=== PATIENT | male | born 1945 | race Caucasian/White ===

== ENCOUNTER 2016-10-21 08:21 | Day surgery (SDC) | payer MEDICARE, OTHER ==
--- NOTE | 2016-10-14 12:08 | HISTORY AND PHYSICAL E ---
History and Physical NAME: DELILAH RODRIGUEZ : 1945 AGE: 71Y ADMITTED: 10/21/2016 ROOM: CHIEF COMPLAINT: Colon screening, history of polyps, history of diverticulosis. HISTORY AND PHYSICAL: The patient is known to me for many years. I saw him when he was 55. The patient at that time underwent colonoscopy showing adenoma polyps. The patient had another colonoscopy in 2000 showing hyperplastic polyp. The patient presented today for follow-up colonoscopy. On his last colon done in 2009 he did have sigmoid polyps and diverticulosis. The patient presented at this time regarding follow-up colonoscopy. One of the polyps came adenoma polyp. He does have diverticulosis. Again, colonoscopy did show adenoma polyp in descending colon and diverticulosis. Because of the multiple issues and diverticulosis, the patient is being done in the OR with anesthesia standby for followup regarding adenoma polyp at the sigmoid junction between sigmoid and descending colon. Biopsy from the adenoma polyp in the left colon was adenoma polyp and sigmoid colon diverticulosis. SOCIAL HISTORY: The patient does not smoke. He drinks an occasional beer. ALLERGIES: No known allergies. REVIEW OF SYSTEMS: HEENT: Negative. CARDIAC: Hypertension. ENDOCRINE: Negative. GASTROINTESTINAL: Diverticulosis. ONCOLOGY/HEMATOLOGY: History of prostate cancer. FAMILY HISTORY: Father of an accident. Mom is alive. PHYSICAL EXAMINATION: VITAL SIGNS: Blood pressure is 120/70, pulse 80, respirations 18, temp 98. HEENT: Normal. NECK: Supple. CARDIOVASCULAR: Normal. LUNGS: Clear. ABDOMEN: Soft. NEUROLOGIC: Negative. CONCLUSIONS: 1. Colon screening. Colon exam to be done in the OR with anesthesia standby. 2. History of polyps, adenoma, sigmoid colon. 3. Sigmoid diverticulosis. MEDICATIONS: The patient takes Lipitor, , vitamins. PAST SURGICAL HISTORY: His first colonoscopy in 2000 showed polyps, 2004 polyps, 2009 polyps, 2016 polyps. PLAN: Colonoscopy, admit 10/21/2016. DICTATING PHYSICIAN: NAYA VASQUEZ M.D. [id number] [id number] ALEXY#: [id number] ID: [id number] JOB#: [id number] ACCT: [id number] cc:NAYA VASQUEZ M.D., ROBERT M.D. >
[2016-10-19 12:14] LABS: HEMATOCRIT 40.2 % (37.9-51.0); HEMOGLOBIN 14.1 g/dL (13.5-17.0); HGB HCT DIFFERENCE 2.1; MEAN CORPUSCULAR HEMOGLOBIN 34.5 pg (27.0-33.4); MEAN CORPUSCULAR HGB CONC 35.1 g/dL (32.0-36.0); MEAN CORPUSCULAR VOLUME 98 fl (80-97); RED BLOOD COUNT 4.09 10^6/uL (4.35-5.55); RED CELL DISTRIBUTION WIDTH 12.4 % (11.5-14.0); WHITE BLOOD COUNT 3.5 10^3/uL (4.0-10.5)
[2016-10-19 12:23] LABS: ANION GAP 12 (5-19); BLOOD UREA NITROGEN 10 mg/dL (7-20); CALCIUM 9.6 mg/dL (8.4-10.2); CARBON DIOXIDE 28 mmol/L (22-30); CHLORIDE 102 mmol/L (98-107); CREATININE RESULT 0.65 mg/dL (0.52-1.25); GLUCOSE 87 mg/dL (75-110); POTASSIUM 4.4 mmol/L (3.6-5.0)
--- NOTE | 2016-10-19 13:12 | EKG REPORT ---
SEVERITY:- ABNORMAL ECG - SINUS RHYTHM NONSPECIFIC T ABNORMALITIES, INFERIOR LEADS : Confirmed by: Kvng Borja MD 19-Oct-2016 13:11:51
[~2016-10-21 08:21] MED LIST: LACTATED RINGERS 1000 ML IV PRN; LIDOCAINE 0.5% INJ-PF (5 MG/ML) 50 ML SDV SUBCUT PRN
[2016-10-21] MEDS ORDERED: FENTANYL CITRATE INJ/PF 100 MCG/2 ML AMPUL ONE (09:12)
[2016-10-21] MEDS ORDERED: MIDAZOLAM 2 MG/2 ML INJ ONE (09:13)
[2016-10-21] MEDS ORDERED: PROPOFOL INJ 200 MG/20 ML VIAL IV ONE (09:13)
[2016-10-21] MEDS ORDERED: MEPERIDINE HCL/PF INJ 25 MG/1 ML DISP.SYRIN IV PRN (09:14)
[2016-10-21] MEDS ORDERED: ONDANSETRON HCL INJ/PF 4 MG/2 ML SDV IV PRN (09:14)
[2016-10-21] MEDS ORDERED: DIPHENHYDRAMINE HCL 50 MG/ML VIAL IV PRN (09:14)
[2016-10-21] MEDS ORDERED: FENTANYL CITRATE INJ/PF 100 MCG/2 ML AMPUL IV PRN ×3 (09:14)
[2016-10-21] MEDS ORDERED: GLUCAGON,HUMAN RECOMB 1 MG INJ ONE (09:18)
[2016-10-21 10:25] LABS: HEMATOCRIT 39.1 % (37.9-51.0); HEMOGLOBIN 13.5 g/dL (13.5-17.0); HGB HCT DIFFERENCE 1.4; MEAN CORPUSCULAR HEMOGLOBIN 33.8 pg (27.0-33.4); MEAN CORPUSCULAR HGB CONC 34.5 g/dL (32.0-36.0); MEAN CORPUSCULAR VOLUME 98 fl (80-97); RED BLOOD COUNT 3.99 10^6/uL (4.35-5.55); RED CELL DISTRIBUTION WIDTH 12.5 % (11.5-14.0)
[2016-10-21 12:27] VITALS: BP 140/70
--- NOTE | 2016-10-21 13:05 | OPERATIVE REPORT E ---
Operative Report NAME: DELILAH RODRIGUEZ : 1945 AGE: 71Y DATE OF SURGERY: 10/21/2016 ROOM: PREOPERATIVE DIAGNOSES: 1. HISTORY OF POLYPS. 2. HISTORY OF DIVERTICULOSIS. POSTOPERATIVE DIAGNOSES: 1. SMALL 3 MM SESSILE POLYP SIGMOID COLON, BIOPSY OBTAINED. 2. SIGMOID DESCENDING COLON DIVERTICULOSIS. 3. EXTERNAL HEMORRHOIDS. OPERATION: Colonoscopy. SURGEON: NAYA VASQUEZ M.D. ANESTHESIA: Done in the OR anesthesia standby. TISSUE REMOVED OR ALTERED: Sigmoid polyp. PROCEDURE: Rectal exam; external hemorrhoids. Sigmoid; diverticulosis. Sessile 3 mm polyp, biopsy obtained. Descending colon; diverticulosis. Transverse colon; normal. Ascending colon; normal. Cecum; normal. Moderate amount of stool in the right colon. Scope withdrawn cecum, ascending. No polyps. Stool, inadequate prep. Transverse colon normal. Sigmoid diverticulosis. Sessile 3 mm polyp. External hemorrhoids. DISCHARGE PLAN: Awaiting biopsy results. Soft low residue diet 3 days. Baseline CBC. Patient to see us in the office in the next few days. Consideration for followup colonoscopy after 3 to 5 years. DICTATING PHYSICIAN: NAYA VASQUEZ M.D. [id number] PHY#: [id number] ID: [id number] JOB#: [id number] ACCT: [id number] cc:NAYA VASQUEZ M.D., ROBERT M.D. >
--- NOTE | 2016-10-21 13:53 | DISCHARGE SUMMARY E ---
Discharge Summary NAME: DELILAH RODRIGUEZ : 1945 AGE: 71Y ADMITTED: 10/21/2016 DISCHARGED: 10/21/2016 PROCEDURE: Colonoscopy, biopsy. HISTORY: The patient is 71 and has history of adenoma polyps sigmoid, severe diverticulosis sigmoid descending colon. Today's colonoscopy shows 3 mm sessile polyp adjacent to the diverticulosis in the sigmoid colon. DISCHARGE PLAN: Soft diet. Hold aspirin and nonsteroidal 5 days, soft low residue diet. Baseline CBC. Consider followup colonoscopy after 3 to 5 years. DICTATING PHYSICIAN: NAYA VASQUEZ M.D. [id number] PHY#: [id number] ID: [id number] JOB#: [id number] ACCT: [id number] cc:NAYA VASQUEZ M.D., ROBERT M.D. >
== END 2016-10-21 11:40 | disposition home or self-care (01) ==
LOC: OROUT 08:21
PROVIDERS: ATTEND Specialist
PROC: 0DBN8ZX Excision of Sigmoid Colon, Via Natural or Artificial Opening Endoscopic, Diagnostic (ICD-10-PCS; principal; 2016-10-21 11:00)
DX: D12.5 Benign neoplasm of sigmoid colon (principal); K57.30 Diverticulosis of large intestine without perforation or abscess without bleeding; K64.4 Residual hemorrhoidal skin tags; I10 Essential (primary) hypertension; Z79.899 Other long term (current) drug therapy
CPT/HCPCS: 45380; 93005; 36415 ×2; 85027 ×2; 80048; 88305 ×2; 93010; J2704; 810; J1610; J2250; J3010